=== PATIENT | male | born 2000 | race Caucasian/White ===

== ENCOUNTER 2025-10-02 00:10 | Emergency (ER) | payer OTHER, SELFPAY ==
[2025-10-02 00:50] VITALS: BP 157/95
[2025-10-02 01:17] LABS: COVID-19 Antigen Negative (Negative)
--- NOTE | 2025-10-02 03:04 | ED.GENMED ---
History of Present Illness
General
Chief Complaint: Cold/Flu/URI Symptoms
Source: patient and spouse
Exam Limitations: none
Time Seen by Provider: 10/02/25 02:53
Nursing documentation reviewed up to this point in time: agreed with
History of Present Illness
History of Present Illness:
25-year-old male sore throat fever nausea painful to swallow but he is able to swallow no shortness of breath or cough
Past History
Past History
ED Past Medical History: None
ED Past Surgical History: None
Social History
Tobacco: Non-smoker
Alcohol: None
Drug: None
Personal:
Living: with family
Employment: Employed
Review of Systems
Review of Systems
Constitutional: Reports fever and fatigue
EENT: Reports sore throat
Respiratory: Denies cough
Cardiac: Reports no symptoms
ABD/GI: Reports nausea; Denies abdominal pain
Phy Exam
Physical Exam
Physical Exam:
Physical Exam
General: no apparent distress, not acutely ill normal voice low-grade temperature
Neck: Red throat exudates on the right tonsil
Heart: Tachycardic
Lungs: No wheeze
Abdomen: Nontender
Neuro: alert and oriented. no focal neurological deficits
Skin: no rash
Psychiatric: well kept. interactive and cooperative
Extremities: no edema.
Sepsis
Sepsis Screening
Sepsis Assessment: Sepsis Ruled Out
Sepsis Screen
Sepsis Screen: Sepsis Ruled Out
Date: 10/02/25
Time: 03:08
Course
Orders/Labs/Results
Orders:
Orders
10/02/25 00:56
COVID-19 Antigen Urgent
Source: Nasal Swab
Influenza A+B Rapid Molecular Urgent
SUKHDEV Source: Nasal Swab
Specimen Description:
10/02/25 03:04
Amoxicillin 875 mg/Clav 125 mg [Augmentin 875 mg/125 mg] 1 tablet PO NOW STA
Ibuprofen [Motrin] 600 mg PO NOW STA
Vital Signs
Initial and Last Documented VS:
Initial Vital Signs
Temp Pulse Resp BP Pulse Ox
100.2 F 122 18 157/95 95
10/02/25 00:50 10/02/25 00:50 10/02/25 00:50 10/02/25 00:50 10/02/25 00:50
Last Documented Vital Signs
Temp Pulse Resp BP Pulse Ox
100.2 F 122 18 157/95 95
10/02/25 00:50 10/02/25 00:50 10/02/25 00:50 10/02/25 00:50 10/02/25 00:50
MDM/Problems Addressed
Differential Diagnosis Includes:
Viral syndrome, strep influenza
MDM/Problems Addressed:
Sore throat
*Pulse Oximetry
SaO2: 95
Oxygen Mode of Delivery: Room air
Patient hypoxic: no
*Critical Care Note
Total Time (30-74mins, 75-104mins- exclusive of procedures): Not Applicable
Update Note
Update Note:
Clinically suspect pharyngitis will treat empirically with antibiotics antipyretics push p.o. fluid
ED Attending Note
-
Portions of this chart may have been created with voice recognition software.� Occasional wrong word or��sound alike� substitutions may have occurred due to the inherent limitations of voice recognition software.
Discharge Plan
Departure
Patient Disposition: Home (Routine Discharge)
Date of Disposition: 10/02/25
Time of Disposition: 03:06
Patient with high blood pressure during this ER visit?: No
Condition: Good
Discharge Problem:
Acute sore throat
Instructions: Sore throat in adults - ED (DC)
Prescriptions:
New
amoxicillin-pot clavulanate 875-125 mg tablet
1 tab PO BID Qty: 14 0RF
ibuprofen 600 mg tablet
600 mg PO Q6H PRN (Reason: Pain) Qty: 20 0RF
Referrals:
[facility] [Provider Group] - Follow up in 1 week
Interventions
Interventions:
*General Assessment Last Done: 10/02/25 03:04
*Neglect/Abuse Screening Last Done: 10/02/25 03:04
*ED COVID-19 Vaccine History Last Done: 10/02/25 03:04
*ED Influenza Vaccine History Last Done: 10/02/25 03:04
[facility] Fall Risk Assessment Tool Last Done: 10/02/25 03:06
*Risk Screen - Suicide (C-SSRS) Last Done: 10/02/25 00:54
Discharge Date and Time
Print Language: [place]
[2025-10-02 03:05] VITALS: BMI 32.3
[2025-10-02 03:08] VITALS: BP 140/96
[2025-10-02] MEDS: MOTRIN 600 MG PO (03:12)
[2025-10-02] MEDS: AUGMENTIN 875 MG/125 MG 1 TABLET PO (03:12)
== END 2025-10-02 03:28 | disposition home or self-care (01) ==
LOC: EMR 00:10
PROVIDERS: EMERGENCY PHYSICIAN Emergency Medicine
DX: J02.9 Acute pharyngitis, unspecified (principal); R11.0 Nausea; Z11.52 Encounter for screening for COVID-19
CPT/HCPCS: 99283; 87502; 87811